=== PATIENT | female | born 1980 | race Caucasian/White ===

== ENCOUNTER 2018-12-17 08:37 | Emergency (ER) | payer OTHER, SELFPAY ==
[2018-12-04 19:48] VITALS: BMI 20.5
[2018-12-17 08:38] VITALS: BP 149/97; PULSE 89; RESP 18; TEMP 36.6; O2SAT 100; BMI 19.9
--- NOTE | 2018-12-17 08:58 | ED.VISSUMM ---
- ER Visit Summary Date of Service: 12/17/18 Chief Complaint: Left flank pain History of Present Illness: The patient is a 38 F presenting with left-sided flank pain. This started last night. States it suddenly worsened this morning. She has nausea with no vomiting. She has intermittent diarrhea and constipation. She has had subjective fever. She denies urinary complaints. Physical Examination: Vitals are stable. Patient is afebrile. Alert no acute distress. HEENT exam is unremarkable. Neck is supple. Lungs are clear and equal bilaterally. Heart is regular rate and rhythm. Abdomen is soft left lower quadrant tenderness with no rebound or guarding Back: Left CVA tenderness Extremities are unremarkable. Skin is warm and dry. Remainder of exam is unremarkable. Emergency Department Course and Treatment: Patient was given morphine, Zofran IV with improvement. CBC, chemistries unremarkable. Urinalysis shows 5-10 white blood cells, 5-10 red blood cells. HCG negative. CT abdomen pelvis without contrast shows 5.9 mm calculus at the left ureterovesical junction with mild degree of left hydronephrosis and hydroureter. On reevaluation, patient is resting comfortably. She is given prescription for [place] and Zofran. She is advised to follow-up with Dr. Bui. Advised return to ED for worsening complaints. Disposition: Discharge home Impression: Urolithiasis This note was generated with [employer] dictation software. It may contain incorrect words, spelling, and punctuation that were not noted in review of the chart prior to signing ED Disposition - Plan for ED Patient: Instructions: ED Stone Renal W Colic Prescriptions: Hydrocodone Bitart/Apap 5-325 [[place] 5MG-325MG] 1 tablet PO Q6H PRN PRN 3 Days #10 tablet PRN Reason: Pain Ondansetron [Zofran Odt] 4 mg PO Q8H PRN PRN #10 tablet PRN Reason: Nausea Referrals: Pilar Larose MD [Primary Care Provider] - Seymour Bui MD [STAFF PHYSICIAN] -
[2018-12-17] MEDS: Ondansetron 4 MG/2 ML Vial IV (09:34)
[2018-12-17] MEDS: Morphine 4 MG/ML Syringe IV (09:35)
[2018-12-17 09:42] LABS: Bacteria 0 SEEN /hpf (None Seen); Mucous, Urine 0 SEEN /hpf (<or=2+); Squamous Epithelial Cells - UA 0 SEEN /hpf (5-10)
[2018-12-17 09:46] LABS: Absolute Lymphocyte Count 1.31 X10^3/ul (0.83-4.51); Absolute Neutrophil Count 7.7 X10^3/uL (2.0-7.7); Basophil# 0.05 X10^3/uL; Basophil% 0.5 % (0-1); Color, Urine Yellow (Yellow); Eosinophil# 0.04 X10^3/uL; Eosinophils% 0.4 % (0-5); Glucose, Dipstick Normal (Normal); Hematocrit 42.2 % (37-47); Hemoglobin 14.6 g/dl (12.0-15.0); Ketone-Dipstick Negative (Negative); Leukocyte Esterase-Dipstick 25 /ul (Negative); Lymphocyte # 1.31 X10^3/ul (4.0); Lymphocyte % 13.4 % (19-41); Mean Corp Hgb Conc 34.6 g/gl (32-36); Mean Corpuscular Hgb 29.4 pg (27.0-32.0); Mean Corpuscular Volume 85.1 fL (81-99); Mean Platelet Vol. 9.1 fl (6.2-12.0); Monocyte# 0.67 X10^3/uL; Monocyte% 6.9 % (0-10); Neutrophil # 7.65 X10^3/uL (2.7-7.7); Neutrophil % 78.6 % (47-70); Nitrite-Dipstick Negative (Negative); Occult Blood-Urine 150 /ul (Negative); Platelet Count 252 K/mm3 (150-450); Protein-Dipstick Negative (Negative); RBC Distribution Width CV 12.5 % (11.6-14.6); RBC Distribution Width SD 37.9 fl (35.1-43.9); Red Blood Count 4.96 M/mm3 (4.2-5.4); Specific Gravity, Urine 1.015 (1.002-1.030); Urine Bilirubin Dipstick Negative (Negative); Urine Clarity Clear (Clear); Urine Urobilinogen Normal (Normal); White Blood Count 9.7 K/mm3 (4.4-11.0)
[2018-12-17 09:47] LABS: POSITIVE COUNT NO; POSITIVE DIFFERENTIAL NO; POSITIVE MORPHOLOGY NO
[2018-12-17 09:57] LABS: Anion Gap 5 (5-15); BUN 7 mg/dL (7-18); Calcium,Total 8.7 mg/dL (8.5-10.1); Chloride 106 mmol/L (98-107); EST Glomerular Filtration Rate 99 mL/min (>60); Est Glom Filt Rate - Afr Amer 120 mL/min (>60); Estimated Creatinine Clearance 104.31 ml/min; Glucose 88 mg/dL (74-106); Potassium 3.9 mmol/L (3.5-5.1); Sodium Level 139 mmol/L (136-145)
[2018-12-17 10:01] LABS: Red Blood Cells-Urine 5-10 SEEN /hpf (0-5); White Blood Cells 5-10 SEEN /hpf (0-5)
[2018-12-17 10:02] LABS: Pregnancy, Serum, hCG Quali. NEGATIVE Negative (0-9 Nonpreg)
--- NOTE | 2018-12-17 10:21 | CT_ITS ---
STUDY: CT ABDOMEN AND PELVIS WITHOUT CONTRAST REASON FOR EXAM: Female, 38 years old. Left flank pain. RADIATION DOSAGE (If Supplied By Facility): CTDIvol = ( 7.76 ) mGy, DLP = ( 334.26 ) mGycm TECHNIQUE: Transaxial images were obtained from the dome of the diaphragm to the symphysis pubis without oral contrast, and without intravenous contrast. Sagittal and coronal images were reconstructed. Individualized dose optimization techniques were used for this CT. COMPARISON: None. FINDINGS: The visualized lung bases are unremarkable. The visualized portions of the heart are within normal limits. Normal liver. Normal gallbladder and extrahepatic biliary system. Normal spleen. Normal pancreas. Normal bilateral adrenal glands. There is a 3 mm nonobstructive calculus in the mid lower pole calyx of the right kidney. Mild left hydronephrosis and hydroureter. There is a 5.9 mm calculus at the left ureterovesical junction. There is a small hiatal hernia. Normal small intestine. Normal colon. The appendix is visualized and appears normal. Normal abdominal aorta. Normal inferior vena cava. Normal retroperitoneum. Normal urinary bladder. An IUD device is seen within a retroverted uterus. There is evidence by 2.6 cm cyst in the right ovary. There is a small umbilical hernia containing fat. There is loss of the normal lumbar lordosis. CT/Abdomen/Pelvis without Cont IMPRESSION: 3 mm nonobstructive calculus in the lower pole calyx of the right kidney. 5.9 mm calculus at the left ureterovesical junction with mild degree of left hydronephrosis and hydroureter. Electronically Signed: Dhruv Ríos, at 11:26 EST , Service support ,
[2018-12-17 11:35] VITALS: BP 138/86; PULSE 70; RESP 16; O2SAT 100
--- NOTE | 2018-12-17 11:46 | DCINST.ED_ITS ---
ED Disposition - Plan for ED Patient: Instructions: ED Stone Renal W Colic Prescriptions: Hydrocodone Bitart/Apap 5-325 [[place] 5MG-325MG] 1 tablet PO Q6H PRN PRN 3 Days #10 tablet PRN Reason: Pain Ondansetron [Zofran Odt] 4 mg PO Q8H PRN PRN #10 tablet PRN Reason: Nausea Referrals: Pilar Larose MD [Primary Care Provider] - Seymour Bui MD [STAFF PHYSICIAN] -
[2018-12-17 11:57] VITALS: BP 141/76; PULSE 72; RESP 16; O2SAT 98
--- NOTE | 2018-12-17 11:58 | ED.RN ---
IV DC'ED, CATHETER INTACT, SMALL GAUZE DRESSING PLACED. DISCHARGE INSTRUCTIONS GIVEN TO AND REVIEWED WITH PATIENT, PATIENT DENIES QUESTIONS OR CONCERNS AND VOICES UNDERSTANDING OF DISCHARGE INSTRUCTIONS. PT AMBULATES OUT OF ROOM WITHOUT DIFFICULTY.
== END 2018-12-17 11:59 | disposition home or self-care (01) ==
LOC: ED 09:07
PROVIDERS: Emergency Provider Emergency Medicine; Family Provider Internal Medicine; PCP Internal Medicine
DX: N13.2 Hydronephrosis with renal and ureteral calculous obstruction (principal)
CPT/HCPCS: 74176; 80048; 81001; 84703; 85025; 96374; 96375; 99282; A4216; J2405

== ENCOUNTER → 2019-01-29 | Outpatient (CLI) | payer OTHER, SELFPAY ==
[2019-01-29 18:30] VITALS: BMI 20.7
== END | disposition home or self-care (01) ==
PROVIDERS: Family Provider Internal Medicine; PCP Internal Medicine; Referring Provider Nurse Practitioner; Visit Provider Nurse Practitioner
DX: E03.9 Hypothyroidism, unspecified (principal)
CPT/HCPCS: 84443

== ENCOUNTER → 2019-03-04 15:27 | Outpatient (CLI) | payer OTHER, SELFPAY ==
[2019-01-29 18:30] VITALS: BMI 20.7
--- NOTE | 2019-03-04 15:30 | RAD_ITS ---
STUDY: X-RAY - ABDOMEN/PELVIS REASON FOR EXAM: Female, 38 years old. Kidney stone follow-up. Recent stone removal. TECHNIQUE: 2 AP images of the abdomen were obtained. COMPARISON: CT dated December 17, 2018. FINDINGS: Normal visualized lung bases. There is an unremarkable bowel gas pattern. There is no demonstrated free abdominal air. No calcifications are visualized within the expected region of the kidneys, ureters or urinary bladder. There is intrauterine device in place in a grossly satisfactory position. Normal soft tissue structures. Normal visualized osseous structures. RAD/Abdomen Single View IMPRESSION: Nonspecific bowel gas pattern. No radiopaque calculi identified. Electronically Signed: Amrita Hoffman MD at 16:03 EDT Tel , Service support ,
== END ==
PROVIDERS: Family Provider Internal Medicine; PCP Internal Medicine; Referring Provider Urology; Visit Provider Urology
DX: N20.0 Calculus of kidney (principal)
CPT/HCPCS: 74018

== ENCOUNTER 2019-03-28 05:59 | Day surgery (SDC) | payer OTHER, SELFPAY ==
[2019-01-29 18:30] VITALS: BMI 20.7
--- NOTE | 2019-03-24 02:36 | HP_ITS ---
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 Is patient in pain?: No Allergies acetaminophen [From [facility] with Codeine] Allergy (Mild, Verified 03/24/19 09:47) Other codeine [From [facility] with Codeine] Allergy (Mild, Verified 03/24/19 09:47) Other Medications multivitamin,kv-rkfk-cfkmhpwu tablet 1 tab PO QDAY 02/05/18 [History Confirmed 03/24/19] levonorgestrel 20 mcg/24 hours (5 yrs) 52 mg intrauterine device 1 insert INTRAUTERINE ONCE 08/19/18 [History Confirmed 03/24/19] clobetasol 0.05 % topical ointment 1 applic TOPICAL QHS #30 g 01/27/19 [Rx Confirmed 03/24/19] PFSH Medical History Lichen sclerosus (Acute) Anxiety and depression (Acute) Atopic eczema (Acute) Surgical History Hx of LASIK (Acute) Family History Grandmother Heart disease Cancer Grandfather Cancer Heart disease Social History Smoking Status: Never smoker alcohol intake: never substance use type: does not use caffeine: Yes what type of physical activity do you participate in: walking seatbelt use: always additional social history: [employer] Patient works for [employer] Female Reproductive History Menstrual control method: progestin IUCD HPI HPI HPI: DANA HAWKINS, is a 38 F who presents to the office today for HPI HPI Surgical H&P: Yes HPI: DANA HAWKINS, is a 38 F who presents to the office today for an update history and physical. Patient notes she had a kidney stone removed in November. She denies recent changes in bowel habits. She denies nausea, vomiting. She denies an increase in abdominal pain. Patient's previous history per Dr. Anderson: DANA HAWKINS, is a 38 F who presents to the office today for general surgical consultation regarding umbilical hernia. The patient is referred by Dr. Izzy Choi written copy of my surgical consult recommendations will be returned to her. The patient states that 7 years ago she delivered twins. She did noted the umbilical hernia at that time. She thinks that it is progressively somewhat enlarged. She is not able to reduce the area. 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 She has not had any additional surgery on her abdomen. She has not been a tobacco user. She otherwise enjoys good health. She was evaluated by Dr. Izzy Choi for possible laparoscopic bilateral salpingectomy for sterilization. Consideration for combined umbilical hernia repair at that time was a consideration. The patient presents for consultation. ROS General General: No weight change, appetite, fatigue, colon cancer, breast cancer or weakness HEENT HEENT: Yes eye surgery; no difficulty swallowing, eye injury, swollen glands or hoarseness Endo Endocrine: No thyroid disease, diabetes mellitus, thyroid cancer, Hair loss, heat intolerance or cold intolerance Skin Skin: No rash or changing moles Musc Musculoskeletal: No back problems, arthritis, rheumatoid arthritis, gout or joint pain Cardio Cardiovascular: No murmur, pacemaker, heart disease, atrial fibrillation, high blood pressure, heart attack, heart stent, palpitations, shortness of breat with exertion or chest pain Psych Psychiatric: No depression, anxiety or hearing voices Resp Respiratory: No shortness of breath, No sleep apnea, No cough, No COPD, No asthma, No emphysema, No wheezing Gastro Gastrointestinal: Yes abdominal pain, No nausea or vomiting, No diarrhea, Yes constipation, No blood in stool, No acid reflux, No hemorrhoids, No ulcers, No gallbladder problem, No black,tarry stools Chance Hematologic: No blood thinners, No blood disorders, No bleeding, No anemia, No blood clots Neuro Neurologic: No weakness Exam Const General: cooperative, healthy appearing, comfortable, no acute distress [facility] Head: normal to inspection Eyes General: appearance normal, both eyes and all related structures Neck Neck: normal visual inspection Neck mass: No Resp Effort & Inspection: normal respiratory effort Auscultation: clear to auscultation bilaterally Cardio Rate: regular rate Rhythm: regular rhythm Heart Sounds: no murmurs GI Inspection: normal to inspection Palpation: soft, hernia (umbilical) Auscultation: normal bowel sounds Skin General: no rashes or lesions noted Neuro General: no focal motor deficits, CN's II-XI intact bilaterally Extrem General: normal to inspection Psych Appearance: grossly normal Affect: normal affect Assessment & Plan Problems 1. Umbilical hernia without obstruction and without gangrene K42.9 recommend surgery consult, discussed laparoscopic bilateral salpingectomy for sterilization at same time if desired Plan Dr. Anderson will plan to perform an umbilical hernia repair with possible mesh. Procedure details, risks and benefits have been reviewed with the patient. Patient has had the opportunity to ask and have questions answered. Patient verbally understands and agrees with the plan. Coding Level of Care Code No Charge Diagnoses Umbilical hernia without obstruction and without gangrene K42.9 ??Obstruction and gangrene presence: without obstruction or gangrene Comment Update H&P 03/24/19 [id number] <Electronically signed by Leena Hong PA-C> Date Leena Hong PA-C I have re-examined the patient. There are no clinical changes since date of exam.
[2019-03-24 09:47] VITALS: BMI 20.2
[2019-03-28 06:24] LABS: Internal QC Validated? YES +Cl - CLEAR BKGD; Pregnancy, Urine Negative Negative
[2019-03-28 06:25] VITALS: BP 140/89; PULSE 67; RESP 16; TEMP 37.2; O2SAT 100; BMI 20.2
[2019-03-28] MEDS: Cefazolin 2 GM in 0.9% Normal Saline 100 ML IV (07:19)
--- NOTE | 2019-03-28 07:30 | HERN_PTH ---
PATIENT: DANA HAWKINS MARCH LOC: [facility] [place] U#:[id number] AGE/SX: 38/F ROOM: RE03/28/[address]: Dr. Zander Anderson MD : 1980 BED: DIS: 03/28/2019 SPEC #: [id number] RECD: 03/28/19 10:02 STATUS: CLEMENT TEO #: [id number] VINAY: 03/28/19 07:[address]: Zander Anderson DEPT: SURGICAL PATHOLOGY RECD BY: Haja Osman ENTERED: 03/28/19 14:38 SP TYPE: Hernia OTHR DR: Dr. Pilar Larose MD Tissues: HERNIA Procedures: Surgery Specimen Level II HEADER OPERATION: Umbilical hernia repair with mesh PRE-OP DIAGNOSIS: Umbilical hernia TISSUE SUBMITTED: Hernia sac MICROSCOPIC DIAGNOSIS Umbilical hernia, herniorrhaphy: Hernia sac with minimal fibrosis and benign lymphoid tissue. AM:clau 03/31/19 MICROSCOPIC DESCRIPTION Slides are reviewed. GROSS DESCRIPTION Received in fixative is one container labeled with the patient's name and designated hernia sac. The specimen consists of a piece of yellow adipose tissue measuring 3 x 2 x 1.5 cm. Sections do not reveal any mass lesion. Cvicu Rn sections are submitted in one cassette. / SJ:clau 03/28/19 TC:5 CPT: 25174
--- NOTE | 2019-03-28 07:31 | DCINST_ITS ---
Discharge Diet: Light diet - advance as tolerated - if you have questions about your diet instructions, please talk to you doctor. Discharge Activity: May Not Drive - for 3-5 days or while taking narcotic pain medicine. May shower in (days): 1 Lifting Restrictions: 10 pounds Call your doctor if your incision/area has: Continuous Slow Oozing, Sudden Increased Bleeding, Increased Pain/ Swelling, Increased Redness, Foul Smelling Discharge Call your doctor if you observe: Fever of 101 or Higher Suture Line Care: Avoid Pulling/Pushing, Avoid Pinching/Bending Additional Dressing/Incision Instructions:: Change or remove dressing in 4 days. Leave steri-strips in place for 1 week. Allergies/Adverse Reactions: Allergies codeine [From [facility] with Codeine] Adverse Reaction (Mild, Verified 03/28/19 06:24) NAUSEA, VOMITING Medications to take at Discharge multivitamin,bt-ialh-ncoxghrs tablet 1 tab PO QDAY 02/05/18 levonorgestrel 20 mcg/24 hours (5 yrs) 52 mg intrauterine device 1 insert INTRAUTERINE ONCE 08/19/18 clobetasol 0.05 % topical ointment 1 applic TOPICAL QHS #30 g 01/27/19 traMADol [Ultram] 50 mg PO Q6H PRN PRN #6 tablet 03/28/19 The following prescriptions were given: traMADol [Ultram] 50 mg PO Q6H PRN PRN #6 tablet PRN Reason: Pain Primary Care Physician: Pilar Larose MD [Primary Care Provider] - Test Results: Test results from this visit will be discussed in further detail at your follow- up appointment, if applicable. Please Follow Up With: Zander Anderson MD - [phone] When: Call to make an appointment to be seen in about 10 days.
[2019-03-28] MEDS: Bupivacaine Mpf 0.5% 30 ML VIAL (08:02)
--- NOTE | 2019-03-28 08:04 | PCM.OPRPT ---
Problem List (1) Umbilical hernia Status: Acute Qualifiers: Obstruction and gangrene presence: without obstruction or gangrene Comment: recommend surgery consult, discussed laparoscopic bilateral salpingectomy for sterilization at same time if desired Report of Operation Date of Procedure: 03/28/19 Pre-Operative Diagnosis: Enlarging umbilical hernia Post-Operative Diagnosis: Same Surgery/Procedure Performed:: Umbilical herniorrhaphy with 6.4 cm ventralex mesh. Reference #[id number]. Lot number [id number]. Expiry date 12/19/2020 Description of Surgical Findings:: Timeout and informed consent was obtained. 38-year-old female taken out from placement table underwent general anesthesia. Ancef 2 g given intravenous preoperatively. The abdomen sterilely prepped draped. Curvilinear incision made in the infra portion umbilicus. Sharp and blunt dissection was used to identify the pedicle hernia sac and contents which were transected with electrocautery. Defect measured approximately ventral X mesh was gently moistened and placed within the defect smooth out and then the tails were secured with interrupted 0 Nurolon. The fascia was closed transversely with the same simple sutures of 0 Nurolon. Skin edges proximal interrupted 4 Monocryl subdermal stitches. Surgical glue was applied followed by cottonball Telfa OpSite. Sponge and instrument and needle counts were reported the surgeon be correct. Blood loss was minimal. A total of 20 cc of 0.5% Marcaine as a local anesthetic was used. Specimens hernia sac contents. Drains none. Blood loss minimal. Zander Anderson M.D., F.A.C.S. Type of Anesthesia:: General Anesthesiologist: Regan Worthington
--- NOTE | 2019-03-28 08:07 | OP.PCM_ITS ---
Problem List (1) Umbilical hernia Status: Acute Qualifiers: Obstruction and gangrene presence: without obstruction or gangrene Comment: recommend surgery consult, discussed laparoscopic bilateral salpingectomy for sterilization at same time if desired Report of Operation Date of Procedure: 03/28/19 Pre-Operative Diagnosis: Enlarging umbilical hernia Post-Operative Diagnosis: Same Surgery/Procedure Performed:: Umbilical herniorrhaphy with 6.4 cm ventralex mesh. Reference #[id number]. Lot number [id number]. Expiry date 12/19/2020 Description of Surgical Findings:: Timeout and informed consent was obtained. 38-year-old female taken out from placement table underwent general anesthesia. Ancef 2 g given intravenous preoperatively. The abdomen sterilely prepped draped. Curvilinear incision made in the infra portion umbilicus. Sharp and blunt dissection was used to identify the pedicle hernia sac and contents which were transected with electrocautery. Defect measured approximately ventral X mesh was gently moistened and placed within the defect smooth out and then the tails were secured with interrupted 0 Nurolon. The fascia was closed transversely with the same simple sutures of 0 Nurolon. Skin edges proximal interrupted 4 Monocryl subdermal stitches. Surgical glue was applied followed by cottonball Telfa OpSite. Sponge and instrument and needle counts were reported the surgeon be correct. Blood loss was minimal. A total of 20 cc of 0.5% Marcaine as a local anesthetic was used. Specimens hernia sac contents. Drains none. Blood loss minimal. Zander Anderson M.D., F.A.C.S. Type of Anesthesia:: General Anesthesiologist: Regan Worthington
[2019-03-28 08:20] VITALS: BP 135/85; BP 140/89; PULSE 57; RESP 18; TEMP 36.4; O2SAT 99
[2019-03-28 08:31] VITALS: BP 121/91; BP 140/89; PULSE 56; RESP 18; O2SAT 100
[2019-03-28 08:45] VITALS: BP 123/78; BP 140/89; PULSE 58; RESP 18; O2SAT 100
[2019-03-28 09:00] VITALS: BP 124/81; BP 140/89; PULSE 59; RESP 18; O2SAT 100
[2019-03-28] MEDS: HYDROcodone Bitartrate/Apap 5/325 Tablet PO (09:29)
[2019-03-28 11:11] VITALS: BP 129/84; BP 140/89; PULSE 66; RESP 18; TEMP 36.6; O2SAT 100
== END 2019-03-28 11:16 | disposition home or self-care (01) ==
LOC: SDC 06:00 → AC 06:01
PROVIDERS: Anesthesiology; Family Provider Internal Medicine; PCP Internal Medicine; Referring Provider Surgery; Visit Provider Surgery
PROC: (CPT 49585; principal; 2019-03-28 07:15)
DX: K42.9 Umbilical hernia without obstruction or gangrene (principal); L20.9 Atopic dermatitis, unspecified; Z87.442 Personal history of urinary calculi
CPT/HCPCS: 49585; 81025; 88302; C1781; J7120; J2405

== ENCOUNTER → 2019-06-03 13:49 | Outpatient (CLI) | payer OTHER, SELFPAY ==
[2019-06-02 15:16] VITALS: BMI 20.3
--- NOTE | 2019-06-03 13:52 | BI_ITS ---
MAMMOGRAPHY - BILATERAL DIAGNOSTIC REASON FOR EXAM: Female, 38 years old. History of a tender left breast lump. PERTINENT HISTORY: Non-contributory. TECHNIQUE: Digital bilateral breast tierra (3D mammographic acquisition) in the CC and MLO projections. 2-D mediolateral oblique (MLO) and craniocaudad (CC) views of both breasts were obtained. CAD: Full Field Digital Mammography with Computer Added Detection was performed. COMPARISON: Comparison is made with prior abdomen examination dated September 12, 2017. FINDINGS: Breast Composition: The breasts are extremely dense, which lowers the sensitivity of mammography. There are no dominant masses or suspicious calcifications. No other significant abnormalities are identified. There has been no significant change since the prior study. BI/DIAG MAMM W/CAD, BILAT IMPRESSION: Stable bilateral diagnostic mammogram. With the patient's history of a palpable lump in the left breast, correlation with ultrasound is recommended. ASSESSMENT CATEGORY: BIRADS Category 0: Incomplete. Need additional imaging evaluation. A letter regarding these results will be sent to the patient by the facility within 30 days. Approximately 10% of breast cancers are not detected by mammography. A normal mammogram should not delay biopsy of a clinically suspicious abnormality. Electronically Signed: Dhruv Ríos, at 15:31 EDT , Service support ,
--- NOTE | 2019-06-03 13:52 | US_ITS ---
STUDY: ULTRASOUND BREAST - LEFT REASON FOR EXAM: Female, 38 years old. Palpable lump left breast. TECHNIQUE: Axial and longitudinal images of the LEFT breast were performed with a high resolution ultrasound transducer. COMPARISON: None. FINDINGS: LEFT Breast: The palpable abnormality corresponds to a 1.5 cm x 1.2 cm x 0.9 cm predominantly cystic structure with a septation and slightly thickened wall. This may represent a complex cyst. A follow-up sonogram in 3 months is recommended. US/Breast Limited Unilateral IMPRESSION: The palpable abnormality corresponds to a 1.5 cm x 1.2 cm x 0.9 cm complex cyst at the 12:00 position of the breast at 3 cm from nipple. This may represent a hemorrhagic cyst A 3 month follow-up sonogram is recommended. ASSESSMENT CATEGORY: BIRADS Category 3: Probably Benign - Short-Interval Follow-up Suggested. A letter regarding these results will be sent to the patient by the facility within 30 days. Electronically Signed: Dhruv Ríos, at 15:31 EDT , Service support ,
== END ==
PROVIDERS: Family Provider Internal Medicine; PCP Internal Medicine; Referring Provider Nurse Practitioner Women's Health; Visit Provider Nurse Practitioner Women's Health
DX: N63.20 Unspecified lump in the left breast, unspecified quadrant (principal)
CPT/HCPCS: 76642; 77062; 77066; G0279

== ENCOUNTER → 2019-12-10 08:36 | Outpatient (CLI) | payer OTHER, SELFPAY ==
[2019-12-10 09:30] LABS: Cholesterol 193 mg/dL (200); Glucose 82 mg/dL (74-106); High Density Lipoprotein 58 mg/dL; Triglycerides 73 mg/dL; Very Low Density Lipoprotein 15 mg/dL (5-40)
== END ==
PROVIDERS: PCP Internal Medicine; Referring Provider Obstetrics & Gynecology; Visit Provider Obstetrics & Gynecology
DX: Z13.1 Encounter for screening for diabetes mellitus (principal); Z13.21 Encounter for screening for nutritional disorder; Z13.220 Encounter for screening for lipoid disorders
CPT/HCPCS: 36415; 80061; 82306; 82947

== ENCOUNTER → 2020-11-29 22:05 | Outpatient (CLI) | payer OTHER, SELFPAY ==
[2020-11-29 19:55] VITALS: BMI 21.1
[2020-11-29 22:38] LABS: ALB/GLOB Ratio 1.2 RATIO (0.9-2.4); AST(SGOT) 16 U/L (15-37); Alanine Aminotransfer ALT/SGPT 21 U/L (13-56); Albumin, Serum 4.2 g/dL (3.2-5.0); Alkaline Phosphatase 58 U/L (45-117); Amylase 77 U/L (25-115); Anion Gap 4 (5-15); BUN 18 mg/dL (7-18); BUN/Creat Ratio 20.8 RATIO (10-20); Calcium,Total 9.1 mg/dL (8.5-10.1); Chloride 105 mmol/L (98-107); Creatinine, Serum 0.87 mg/dL (0.55-1.02); EST Glomerular Filtration Rate 77 mL/min (>60); Est Glom Filt Rate - Afr Amer 93 mL/min (>60); Globulin 3.6 g/dL (2.2-4.2); Glucose 69 mg/dL (74-106); Potassium 3.9 mmol/L (3.5-5.1); Protein, Total 7.8 g/dL (6.4-8.2); Sodium Level 138 mmol/L (136-145)
[2020-11-29 22:39] LABS: Absolute Lymphocyte Count 2.03 X10^3/uL (0.83-4.51); Absolute Neutrophil Count 3.4 X10^3/uL (2.0-7.7); Basophil# 0.08 X10^3/uL; Basophil% 1.3 % (0-1); Eosinophil# 0.15 X10^3/uL; Eosinophils% 2.4 % (0-5); Hematocrit 40.7 % (37-47); Hemoglobin 13.9 g/dL (12.0-15.0); Lymphocyte # 2.03 X10^3/ul (4.0); Lymphocyte % 32.2 % (19-41); Mean Corp Hgb Conc 34.2 g/dL (32-36); Mean Corpuscular Hgb 28.6 pg (27.0-32.0); Mean Corpuscular Volume 83.7 fL (81-99); Mean Platelet Vol. 10.1 fl (6.2-12.0); Monocyte# 0.66 X10^3/uL; Monocyte% 10.5 % (0-10); NRBC Flagged by Analyzer 0 % (0-5); Neutrophil # 3.37 X10^3/uL (2.7-7.7); Neutrophil % 53.4 % (47-70); Platelet Count 244 K/mm3 (150-450); RBC Distribution Width CV 11.9 % (11.6-14.6); Red Blood Count 4.86 M/mm3 (4.2-5.4); White Blood Count 6.3 K/mm3 (4.4-11.0)
== END ==
PROVIDERS: PCP Internal Medicine; Referring Provider Nurse Practitioner; Visit Provider Nurse Practitioner
DX: R10.11 Right upper quadrant pain (principal)
CPT/HCPCS: 80053; 82150; 85025

== ENCOUNTER → 2020-12-02 07:50 | Outpatient (CLI) | payer OTHER, SELFPAY ==
[2020-11-23 16:17] VITALS: BMI 21.2
[2020-11-29 19:55] VITALS: BMI 21.1
--- NOTE | 2020-12-02 07:52 | US_ITS ---
EXAM: US ABDOMEN LIMITED, RIGHT UPPER QUADRANT CLINICAL INDICATION: chronic ruq pain TECHNIQUE: Real-time ultrasound of the right upper quadrant with image documentation. This report was created using [employer] report generation technology. COMPARISON: None. FINDINGS: LIVER: Unremarkable. There is normal echotexture. No focal hepatic lesion. No intrahepatic biliary ductal dilation. GALLBLADDER: Unremarkable. No shadowing gallstone. No gallbladder wall thickening is demonstrated. No pericholecystic fluid. Negative sonographic Prajapati''s sign. COMMON BILE DUCT: Unremarkable as visualized. The proximal common bile duct is within normal limits for the patient''s age. PANCREAS: Unremarkable as visualized. No focal abnormality is demonstrated in the pancreas. No pancreatic ductal dilatation. RIGHT KIDNEY: Unremarkable. There is no hydronephrosis. No shadowing calculus. No focal lesion or perinephric collection is demonstrated. US/Gallbladder IMPRESSION: Normal right upper quadrant ultrasound. Electronically Signed: Wang Merritt MD ([place]) at 16:51 EST , Service support ,
--- NOTE | 2020-12-02 07:52 | BI_ITS ---
MAMMOGRAPHY - BILATERAL DIAGNOSTIC REASON FOR EXAM: Female, 40 years old. RT CLEAR NIPPLE DISCHARGE X 3-4 MONTHS NO PAIN PERTINENT HISTORY: NO FAM HX OF BREAST CA PT HAD FIRST CHILD AT AGE 28 PT HAS HAD IUD X 7 YRS LT U/S DONE 06/03/19 OF [facility]= PB LT U/S BX 06/13/19 @ [facility] TECHNIQUE: Digital bilateral breast tierra (3D mammographic acquisition) in the CC and MLO projections. 2-D mediolateral oblique (MLO) and craniocaudad (CC) views of both breasts were obtained. CAD: Full Field Digital Mammography with Computer Added Detection was performed. COMPARISON: None. FINDINGS: Breast Composition: The breasts are extremely dense, which lowers the sensitivity of mammography. There are no dominant masses or suspicious calcifications. No other significant abnormalities are identified. BI/DIAG MAMM W/CAD, BILAT IMPRESSION: Further ultrasonographic evaluation recommended, as described above. (I) ASSESSMENT CATEGORY: BIRADS Category 0: Incomplete. Need additional imaging evaluation. A letter regarding these results will be sent to the patient by the facility within 30 days. Approximately 10% of breast cancers are not detected by mammography. A normal mammogram should not delay biopsy of a clinically suspicious abnormality. Electronically Signed: Kermit Loredo MD at 1:39 EST Tel , Service support ,
--- NOTE | 2020-12-02 07:52 | US_ITS ---
STUDY: ULTRASOUND BREAST - RIGHT REASON FOR EXAM: Female, 40 years old. Nipple discharge in the right breast. TECHNIQUE: Axial and longitudinal images of the RIGHT breast were performed with a high resolution ultrasound transducer. # OF IMAGES: 13 COMPARISON: Comparison is made with prior mammogram done earlier in the day. FINDINGS: RIGHT Breast: The retroareolar region of the right breast was examined by ultrasound. No sonographic abnormality is seen. US/Breast Limited Unilateral IMPRESSION: No sonographic abnormality is seen. ASSESSMENT CATEGORY: BIRADS Category 1: Negative. A letter regarding these results will be sent to the patient by the facility within 30 days. Electronically Signed: Dhruv Ríos MD at 12:56 EST , Service support ,
== END ==
PROVIDERS: PCP Internal Medicine; Referring Provider Obstetrics & Gynecology; Visit Provider Obstetrics & Gynecology
DX: N64.3 Galactorrhea not associated with childbirth (principal); R10.11 Right upper quadrant pain
CPT/HCPCS: 76642; 76705; 77062; 77066; G0279

== ENCOUNTER → 2020-12-10 12:31 | Outpatient (CLI) | payer OTHER, SELFPAY ==
[2020-11-29 19:55] VITALS: BMI 21.1
--- NOTE | 2020-12-10 12:32 | NM_ITS ---
CLINICAL: 40-year-old female with history of abdominal pain and nausea. RADIONUCLIDE HEPATOBILIARY SCINTIGRAPHY COMPARISON: Abdominal ultrasound report 12/02/2020 FINDINGS: Following the intravenous administration of approximately 5.0 mCi of 99m Tc Mebrofenin, hepatobiliary images reveal: 1. Relatively prompt and homogeneous radiopharmaceutical concentration is noted by a normal sized liver. No parenchymal defects are identified. 2. Gallbladder activity is identified at 10 minutes post radiopharmaceutical administration. 3. Small intestinal tract is observed at 45 minutes following tracer injection. 4. Washout of the radiopharmaceutical by the hepatic parenchyma appears qualitatively normal. Cholecystokinin (0.02 ug/kg) was administered intravenously over a 30-minute period. The post CCK gallbladder ejection fraction calculated at 21 minutes following Cholecystokinin administration was noted to be 91.0 % (normal greater than 35%). During 30 minutes of post CCK imaging, there is no scintigraphic evidence of reflux of the radiotracer into the common hepatic duct or refilling of the gallbladder. KS/Hepatobilliary Img w/Pharm Int IMPRESSION: 1. NORMAL 99m Tc Mebrofenin hepatobiliary imaging examination with Cholecystokinin. A. A gallbladder ejection fraction calculated to be greater than 35% following the administration of Cholecystokinin makes the probability of functional hepatobiliary disease (gallbladder and/or sphincter of Oddi dyskinesia) and/or organic hepatobiliary disease (chronic acalculous cholecystitis and/or cystic duct syndrome) to be low. (Jacobo Billy et al, Journal of Nuclear Medicine 32:1695, 1991). Electronically Signed: Jaya Perkins DO at 8:34 EST Tel , Service support ,
== END ==
PROVIDERS: PCP Nurse Practitioner; Referring Provider Nurse Practitioner; Visit Provider Nurse Practitioner
DX: R10.11 Right upper quadrant pain (principal); R11.2 Nausea with vomiting, unspecified
CPT/HCPCS: 78227; A9537; J2805

== ENCOUNTER → 2021-03-17 09:49 | Outpatient (CLI) | payer OTHER, SELFPAY ==
[2020-11-29 19:55] VITALS: BMI 21.1
--- NOTE | 2021-03-17 09:52 | RAD_ITS ---
STUDY: X-RAY - ABDOMEN/PELVIS REASON FOR EXAM: Female, 40 years old. CALCULUS OF KIDNEY TECHNIQUE: Single AP view of the abdomen / pelvis. COMPARISON: 03/04/2019 FINDINGS: Normal visualized lung bases. There is an unremarkable bowel gas pattern. The visualized liver, spleen and kidneys are grossly normal in size and morphology. Intrauterine device in the pelvis. Normal visualized osseous structures. RAD/Abdomen Single View IMPRESSION: Normal x-ray examination of the abdomen and pelvis. No obvious renal or ureteral stone. Electronically Signed: Jaya Toledo MD at 7:41 EDT Tel , Service support ,
--- NOTE | 2021-03-17 11:01 | CT_ITS ---
STUDY: CT ABDOMEN AND PELVIS WITHOUT CONTRAST REASON FOR EXAM: Female, 40 years old. One-month history of right flank pain with microscopic hematuria. RADIATION DOSAGE (If Supplied By Facility): CTDIvol = ( 6.25 ) mGy, DLP = ( 281.22 ) mGycm TECHNIQUE: Transaxial images were obtained from the dome of the diaphragm to the symphysis pubis without oral contrast, and without intravenous contrast. Sagittal and coronal images were reconstructed. Individualized dose optimization techniques were used for this CT. COMPARISON: Comparison is made with prior study 12/17/2018. FINDINGS: The visualized lung bases are unremarkable. The visualized portions of the heart are within normal limits. Normal liver. Normal gallbladder and extrahepatic biliary system. Normal spleen. Normal pancreas. Normal bilateral adrenal glands. Stable small nonobstructive bilateral intrarenal calculi. No obstructive uropathy is seen. Normal visualized stomach. Normal small intestine. Normal colon. The appendix is visualized and appears normal. Normal abdominal aorta. Normal inferior vena cava. Normal retroperitoneum. Normal urinary bladder. IUD is seen within the retroverted uterus. There is a 2.7 cm x 3.3 cm cystic density in the left ovary. A similar appearing nodular densities in the right ovary measuring 2.6 cm x 2.2 cm. There is a small umbilical hernia containing fat. Normal osseous structures. CT/Abdomen/Pelvis without Cont IMPRESSION: 2.7 cm x 3.3 cm cystic density in the left ovary. 2.6 cm x 2.2 cm right ovarian cyst. Stable small nonobstructive bilateral intrarenal calculi. Electronically Signed: Dhruv Ríos MD at 12:05 EDT , Service support ,
[2021-03-17 16:17] LABS: Bacteria 0 SEEN /hpf (None Seen); Mucous, Urine 0 SEEN /hpf (<or=2+); Red Blood Cells-Urine 0 SEEN /hpf (0-5); White Blood Cells 0 SEEN /hpf (0-5)
[2021-03-17 16:55] LABS: Color, Urine Straw (Yellow); Glucose, Dipstick Normal (Normal); Ketone-Dipstick Negative (Negative); Leukocyte Esterase-Dipstick Negative /ul (Negative); Nitrite-Dipstick Negative (Negative); Occult Blood-Urine Negative /ul (Negative); Protein-Dipstick Negative (Negative); Specific Gravity, Urine 1.005 (1.002-1.030); Urine Bilirubin Dipstick Negative (Negative); Urine Clarity Clear (Clear); Urine Urobilinogen Normal (Normal)
[2021-03-17 17:07] LABS: Squamous Epithelial Cells - UA 0-5 SEEN /hpf (5-10)
== END ==
PROVIDERS: PCP Nurse Practitioner; Referring Provider Nurse Practitioner Adult Health; Visit Provider Nurse Practitioner Adult Health
DX: N20.0 Calculus of kidney (principal); R10.9 Unspecified abdominal pain; R31.29 Other microscopic hematuria
CPT/HCPCS: 74018; 74176; 81001

== ENCOUNTER → 2021-03-23 12:20 | Outpatient (CLI) | payer OTHER, SELFPAY ==
[2020-11-29 19:55] VITALS: BMI 21.1
--- NOTE | 2021-03-23 12:23 | US_ITS ---
STUDY: ULTRASOUND OF THE FEMALE PELVIS - COMPLETE REASON FOR EXAM: Female, 40 years old. Pelvic pain LMP: Unknown. TECHNIQUE: Transabdominal and Transvaginal TECHNICAL QUALITY: Adequate. COMPARISON: Comparison is made with prior CT scan of the abdomen and pelvis dated 03/17/2021. FINDINGS: The uterus is retroverted and is in a midline position. The uterus measures 10.3 cm x 6.3 cm x 4.8 cm. Normal uterine cervix. The endometrium measures 1.2 mm in thickness, and is hyperechoic. There is no demonstrated endometrial mass. There is no demonstrated myometrial mass. I.U.D. - The patient does have an I.U.D. The right ovary is visualized. The right ovary measures 3.6 cm x 2.8 cm x 2.1 cm. There is a 2.2 cm x 2.1 cm x 2 cm cyst in the right ovary. There is no visualized right adnexal mass or complex lesion. There is normal arterial and normal venous vascularity. The left ovary is visualized. The left ovary measures 4.7 cm x 3 cm x 2.9 cm. There is a 3.2 cm x 2.3 cm x 2.6 cm left ovarian cyst. There is no visualized left adnexal mass or complex lesion. There is normal arterial and normal venous vascularity. There is no fluid in the cul-de-sac. The pre void volume of the bladder was 286. ml. Polycystic ovary disease: No. US/Pelvic (Non ) IMPRESSION: IUD is seen within the endometrium. Bilateral ovarian cysts. Electronically Signed: Dhruv Ríos MD at 15:53 EDT , Service support ,
--- NOTE | 2021-03-23 12:23 | US_ITS ---
STUDY: ULTRASOUND OF THE FEMALE PELVIS - COMPLETE REASON FOR EXAM: Female, 40 years old. Pelvic pain LMP: Unknown. TECHNIQUE: Transabdominal and Transvaginal TECHNICAL QUALITY: Adequate. COMPARISON: Comparison is made with prior CT scan of the abdomen and pelvis dated 03/17/2021. FINDINGS: The uterus is retroverted and is in a midline position. The uterus measures 10.3 cm x 6.3 cm x 4.8 cm. Normal uterine cervix. The endometrium measures 1.2 mm in thickness, and is hyperechoic. There is no demonstrated endometrial mass. There is no demonstrated myometrial mass. I.U.D. - The patient does have an I.U.D. The right ovary is visualized. The right ovary measures 3.6 cm x 2.8 cm x 2.1 cm. There is a 2.2 cm x 2.1 cm x 2 cm cyst in the right ovary. There is no visualized right adnexal mass or complex lesion. There is normal arterial and normal venous vascularity. The left ovary is visualized. The left ovary measures 4.7 cm x 3 cm x 2.9 cm. There is a 3.2 cm x 2.3 cm x 2.6 cm left ovarian cyst. There is no visualized left adnexal mass or complex lesion. There is normal arterial and normal venous vascularity. There is no fluid in the cul-de-sac. The pre void volume of the bladder was 286. ml. Polycystic ovary disease: No. US/Transvaginal Non- IMPRESSION: IUD is seen within the endometrium. Bilateral ovarian cysts. Electronically Signed: Dhruv Ríos MD at 15:53 EDT , Service support ,
== END ==
PROVIDERS: PCP Nurse Practitioner; Referring Provider Obstetrics & Gynecology; Visit Provider Obstetrics & Gynecology
DX: R10.2 Pelvic and perineal pain (principal)
CPT/HCPCS: 76830; 76856; 93976

== ENCOUNTER 2021-06-07 05:55 | Day surgery (SDC) | payer OTHER, SELFPAY ==
[2021-03-29 12:01] VITALS: BMI 21.1
[2021-05-09 10:43] VITALS: BMI 21.1
[2021-06-06 10:27] LABS: Absolute Lymphocyte Count 1.31 X10^3/uL (0.83-4.51); Absolute Neutrophil Count 4.6 X10^3/uL (2.0-7.7); Basophil# 0.07 X10^3/uL; Basophil% 1.1 % (0-1); Eosinophils% 1.5 % (0-5); Hematocrit 41.2 % (37-47); Hemoglobin 14.1 g/dL (12.0-15.0); Lymphocyte # 1.31 X10^3/ul (0.83-4.51); Lymphocyte % 19.8 % (19-41); Mean Corp Hgb Conc 34.2 g/dL (32-36); Mean Corpuscular Hgb 29.4 pg (27.0-32.0); Mean Corpuscular Volume 85.8 fL (81-99); Mean Platelet Vol. 9.8 fl (6.2-12.0); Monocyte% 7.6 % (0-10); NRBC Flagged by Analyzer 0 % (0-5); Neutrophil # 4.62 X10^3/uL (2.7-7.7); Neutrophil % 69.8 % (47-70); Platelet Count 244 K/mm3 (150-450); RBC Distribution Width CV 12.4 % (11.6-14.6); RBC Distribution Width SD 38.8 fl (35.1-43.9); White Blood Count 6.6 K/mm3 (4.4-11.0)
[2021-06-07] VITALS (7 sets, daily range): BP systolic 114–146; BP diastolic 72–91; PULSE 61–75; RESP 16–18; TEMP 36.4–36.9; O2SAT 100; BMI 20.2
--- NOTE | 2021-06-07 | FALS_PTH ---
PATIENT: DANA HAWKINS MARCH LOC: [facility] [place] U[place][id number] AGE/SX: 40/F ROOM: RE06/07/[address]: Dr. Izzy Choi MD : 1980 BED: DIS: 06/07/2021 SPEC #: [id number] RECD: 06/07/21 12:15 STATUS: CLEMENT RENunu #: [id number] VINAY: 06/07/21 00:[address]: Izzy Choi DEPT: SURGICAL PATHOLOGY RECD BY: Bj Kat ENTERED: 06/07/21 12:15 SP TYPE: FALL TUBES OTHR DR: Itzel Ashley, SD-Roseanne Tissues: Fallopian tube Procedures: Surgery Specimen Level IV HEADER OPERATION: Laparoscopic bilateral salpingectomy, right oophorectomy PRE-OP DIAGNOSIS: Chronic pelvic pain, right flank pain TISSUE SUBMITTED: Bilateral fallopian tubes, right ovary MICROSCOPIC DIAGNOSIS Bilateral fallopian tubes and right ovary, salpingectomies and oophorectomy: Right fallopian tube - complete segment of fallopian tube with no pathologic change. Left fallopian tube - complete segment of fallopian tube with no pathologic change. Right ovary ? corpora albicantia with benign cystic change. AM:clau 06/08/2021 COMMENT Case has been reviewed in consultation with Dr. Gay who concurs with the above diagnosis. IDC:RANDA MICROSCOPIC DESCRIPTION Slides are reviewed. GROSS DESCRIPTION Received in fixative is one container labeled with the patient's name and designated bilateral fallopian tubes and right ovary. The specimen consists of a fallopian tube and adjacent ovary identified as right and one separate fallopian tube, left fallopian tube. The left fallopian tube measures 4.5 cm in length and 0.5 cm in diameter. The fimbrial end is identified. Sections reveal unremarkable cut surfaces. The right fallopian tube measures 4.5 cm in length and 0.5 cm in diameter. The fimbrial end is identified. No tuboovarian adhesions are noted. Sections reveal unremarkable cut surfaces. The soft to cystic right ovary measures 3 x 2 x 1.5 cm. The outer surface is unremarkable. Sections reveal multiple cysts filled with clear to slightly hemorrhagic fluid. The largest cyst measures 1 cm in greatest dimension. Stud Sheep Farmer sections are submitted in five cassettes as follows: 1 - left fallopian tube, 2 - right fallopian tube, 3-5 ? right ovary, entirely submitted. / RANDA:clau 06/07/21 TC:5 CPT: 05701 x3
[2021-06-07 06:27] LABS: Internal QC Validated? YES +Cl - CLEAR BKGD; Pregnancy, Urine Negative Negative
[2021-06-07] MEDS: Lactated Ringers 1,000 ML 100 ML IV ×2 (06:37→09:18)
--- NOTE | 2021-06-07 07:26 | HP.PCM_ITS ---
History and Physical Date of Admission: 06/07/21 [facility] [id number] [place] [address] [id number] OFFICE VISITDate of Service: 05/09/21 MR#:[id number]:[id number]: DANA HAWKINS JUNERep #:[id number] Provider:Dr. Izzy Choi, WILLISge/Sex: 40/F [facility] Int[facility] Vital Signs 05/09/21 10:42 05/09/21 10:43 Height 5 ft 9 in Weight: 137 lb BMI 20.2 21.1 BP 150/104 H Intake Visit Reasons: LRSO Chief Complaint: LRSO Vasc Tech Required: No Is patient in pain?: No Allergies codeine [From [employer] with Codeine] Adverse Reaction (Mild, Verified 11/23/20 16:18) NAUSEA, VOMITING Medications levonorgestrel 20 mcg/24 hours (6 yrs) 52 mg intrauterine device 1 insert INTRAUTERINE ONCE 08/19/18 [History Confirmed 03/29/21] clobetasol 0.05 % topical ointment 1 applic TOPICAL QHS #60 g 10/11/20 [Rx Confirmed 05/09/21] famotidine 40 mg tablet 40 mg PO DAILY #90 tab 12/13/20 [Rx Confirmed 03/29/21] Is last menstrual period known: No Post menopausal: No Patient : No : No PFSH Medical History Anxiety and depression Atopic eczema Cyst of left breast Cyst, breast Eczema Kidney stones Lichen sclerosus Maxillary sinusitis Umbilical hernia Surgical History H/O lithotripsy History of umbilical hernia repair (~03/2019) Hx of LASIK Family History Grandmother Heart disease Cancer Grandfather Cancer Heart disease Social History Smoking Status: Never smoker alcohol intake: never substance use type: does not use caffeine: Yes what type of physical activity do you participate in: walking seatbelt use: always 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 Female Reproductive History Menopausal Symptoms: No night sweats Pregancy History 2 Elective abortions Hx Para 3 Spontaneous abortions Hx # Term Pregnancies Ectopic pregnancies Hx # Pregnancies Multiple births 1 # of living children Past Pregnancies Del. Date Name GA/Weeks Outcome Route Bth Weight Gen Labor Lgth Anesthesia Del Locatn Provider FOB Unknown 2008 El Unknown 2011 Stephani Koko ROS Const Constitutional: Denies fatigue, night sweats, weight gain or weight loss ENT ENT: Reports system reviewed and no additional complaints, except as documented Cardio Card: Denies chest pain Resp Resp: Denies cough or dyspnea GI GI: Reports as per HPI; Denies constipation or vomiting : Denies nipple discharge, urinary frequency, urinary incontinence, urinary hesitancy, vaginal discharge, vaginal dryness, vaginal odor or vaginal pruritus Musc Musc: Denies arthralgias, back pain or muscle weakness Skin Skin/Breast: Denies alopecia, change in hair, dry skin, breast mass, breast pain, breast skin changes or nipple discharge Neuro Neuro: Reports system reviewed and no additional complaints, except as documented Psych Psych: Reports system reviewed and no additional complaints, except as documented Endo Endo: Denies cold intolerance, excessive sweating, heat intolerance or polydipsia Chance/Lymph Hematologic/Lymphatic: Denies easy bleeding, Denies easy bruising and Denies lymphadenopathy Exam Const General: cooperative, healthy appearing, comfortable, no acute distress and well developed Orientation: alert [facility] Head: normal to inspection and normocephalic Ears: hearing grossly normal bilaterally and external ears normal Nose: external nose normal and nares normal Face and sinus: normal facial exam Neck Neck: normal visual inspection and no lymphadenopathy Thyroid: thyroid normal Chest Chest palpation & inspection: normal inspection of the chest Resp Effort & Inspection: normal respiratory effort Auscultation: clear to auscultation bilaterally Cardio Rate: regular rate Rhythm: regular rhythm Heart Sounds: S1 normal and S2 normal GI Inspection: normal to inspection and non-distended Palpation: soft and no hepatosplenomegaly General: bladder normal to palpation External Female Exam: normal external appearance and normal appearance of the urethra Urethra: normal appearance of the urethra, normal palpation and no discharge Speculum Exam - Vagina: normal appearance of the vagina and normal vaginal discharge Speculum Exam - Cervix: normal appearance of the cervix and nontender Bimanual Exam- Vagina & Uterus: normal bimanual exam, uterine size normal, bladder normal to palpation, uterine shape normal, No tender, uterine mobility normal, consistency normal, normal palpation and non-tender Bimanual Exam- Adnexa, other: normal adnexae, adnexae mobile, no masses and normal Pelvic Support: normal Musc Other: gross motor intact no deficits, full bilateral strength Skin General: no rashes or lesions noted Neuro General: patient alert, patient awake, moves all extremities and no focal motor deficits Motor: muscle tone normal throughout Extrem General: normal to inspection and no pedal edema Psych Appearance: grossly normal Mental Status: mental status grossly normal Affect: normal affect Speech and Movement: speech and movement normal Coding Level of Care Code No Charge Diagnoses Chronic pelvic pain in female R10.2; G89.29 Right flank pain R10.9 Umbilical hernia K42.9 Obstruction and gangrene presence: without obstruction or gangrene Family history of ovarian cancer Z80.41 Assessment and Plan Assessment and Plan (1) Chronic pelvic pain in female: Status: Chronic Comment: s/p urology, GI, PCP workup, ordered PT consult. plan laparoscopic RSO. left salpingectomy. IUD is in place 01/2018 Plan - Dr. Izzy Choi MD: After discussing the patient's diagnosis and treatment plan options, patient wishes to proceed with surgical management. I have discussed with the patient the risks, benefits, and alternatives of the procedure which include but are not limited to risks of anesthesia, bleeding, infection, possible damage to bowel, bladder, or surrounding vasculature which could lead to additional surgery to ev aluate any complications. Patient agrees to procedure and wishes to proceed. ACOG/uptodate references given for additional information regarding procedure. (2) Right flank pain: Status: Acute Comment: stable kidney stones, s/p urology consult (3) Umbilical hernia: Status: Acute Qualifiers: Obstruction and gangrene presence: without obstruction or gangrene Comment: s/p surgical repair, dw Dr Anderson. plan LUQ entry (4) Family history of ovarian cancer: Status: Acute Comment: grandmother with uterine and ovarian cancer, discussed [employer]. UPDATE- I have seen the patient and performed any clinically relevant updates to the history and physical exam. Izzy Choi MD
[2021-06-07] MEDS: Bupivacaine Mpf 0.5% 30 ML VIAL (08:00)
--- NOTE | 2021-06-07 08:26 | DCINST_ITS ---
Discharge Instructions Diet Discharge Diet: No restrictions Activity Discharge Activity: Return to Normal Activity, May Not Drive (for 2 weeks or while taking narcotic pain meds.), May Shower and May Take a Tub Bath (in 7 days) May resume sexual activity in: 1 week Weight Bearing Status: Full weight bearing Dressing / Incision Call your doctor if your incision/area has: Continuous Slow Oozing, Sudden Increased Bleeding, Increased Pain/ Swelling, Increased Redness and Foul Smelling Discharge Call your doctor if you observe: Fever of 101 or Higher, Using more than 1 pad per hour, Shortness of breath, Chest pain and Uncontrolled pain Suture Line Care: Avoid Pulling/Pushing and Avoid Pinching/Bending Remove Dressing in: 1 week (if present) Cleanse incision/area with: Soap & Water and Keep Dressing Clean & Dry Follow Up Care When: Call to make an appointment with your doctor for a fu/incision check in 1- 2 weeks. Test Results: Test results from this visit will be discussed in further detail at your follow-up appointment, if applicable. Discharge Plan Admission Primary Reason for Your Visit: LAPAROSCOPY Attending Provider: Izzy Choi Primary Care Provider: Itzel Ashley NP Discharge Orders/Prescriptions Prescriptions: New hydrocodone-acetaminophen 5-325 mg tablet 1 tab PO Q6H PRN (Reason: pain) 5 Days Qty: 10 RF: 0 ibuprofen [ibuprofen] 600 MG tablet 600 mg PO Q6H PRN PRN (Reason: pain) Qty: 30 RF: 0 Continued Mirena 20 mcg/24 hr (5 years) intrauterine device 1 insert Intrauterine ONCE RF: 0 clobetasol 0.05 % ointment 1 applic TOPICAL PRN PRN (Reason: Rash) RF: 0 Referrals / Follow Up: Izzy Choi MD [STAFF PHYSICIAN] - Itzel Ashley NP, FACULTY HEAD-C [Primary Care Provider] - Disposition Disposition (needs filled in before D/C Order can be placed): Home, Self Care
--- NOTE | 2021-06-07 08:26 | OP.PCM_ITS ---
Problems Associated Problem List Diagnoses (1) H/O oophorectomy: (2) Chronic pelvic pain in female: (3) Umbilical hernia: Report of Operation Date of Procedure: 06/07/21 Pre-Operative Diagnosis: see problem list Post-Operative Diagnosis: same Surgery/Procedure Performed:: laparoscopic bilateral salpingectomy and right oophorectomy balling machine operator: Juan Francisco Beal Type of Anesthesia: General and Local Special Medications: none Specimen's removed: tubes and right ovary Drains: none Estimated Blood Loss (mL): 50 Fluids Replaced: crystalloid Description of Procedure: Patient was taken in the operating room and was placed under general anesthesia was prepped and draped in normal sterile fashion in the dorsal lithotomy position. Bladder was drained of clear urine and SCDs were on preoperatively. no uterine manipulator was placed due to iud being present. Attention was then paid to the abdominal portion of the procedure and the stomach was confirmed to be emptied with an OG tube that was placed by anesthesia, 2 cm below the lowest rib and in the midclavicular line on the left side was injected, a 5 mm incision made and the Veress needle was entered into the abdomen confirmed to be intra-abdominal with a low opening pressure of less than 8 mmHg. Abdomen was insufflated with CO2 gas and a 12 mm optical trocar was placed under direct visualization. A right 12 and left lower quadrant 5 mm ports were placed under direct visualization. Uterus was well visualized and bilateral fallopian tubes and ovaries were identified and the [bilateral] mesosalpinx was transected across using the LigaSure device followed by transecting across the utero-ovarian and infundibulopelvic ligament on the right ovary to remove the right ovary and bilateral fallopian tubes without complication. Right ovary had a nodular but overall normal appearance but had increased vascular congestion noted on the right side that was not present on the left. A simple ovulatory cyst was noted on the left side that was drained of clear serous fluid. Excellent hemostasis was noted. Specimens were removed through the right lower quadrant port site through a bag without any intra- abdominal spillage of contents. The fascial incision was closed using the Mynor Laura and an 0 Vicryl. Liver and upper abdomen were visualized notably within normal limits and while there may have been mild distention to the sigmoid colon no gross abnormalities were noted or defects seen, and no other gross abnormalities were seen in the abdomen. All instruments removed from the abdomen after gas was desufflated. Port sites were closed with 3-0 Monocryl Steri's and op sites were applied. All instruments removed from the vagina and patient was awoken and taken recovery in stable condition. Grafts/Implants Used: none Complications none Admit VTE Documentation VTE Present on Admission: No VTE Mechan Device Prophylaxis: SCD's Procedures Urinary/Genital 52xxx-[id number]: [id number] Laproscopic BS/O
== END 2021-06-07 10:46 | disposition home or self-care (01) ==
LOC: SDC 05:55 → AC 05:57
PROVIDERS: PCP Nurse Practitioner; Referring Provider Obstetrics & Gynecology; Visit Provider Obstetrics & Gynecology
PROC: (CPT 58720; principal; 2021-06-07 07:15)
DX: G89.29 Other chronic pain (principal); R10.2 Pelvic and perineal pain; Z79.3 Long term (current) use of hormonal contraceptives; K42.9 Umbilical hernia without obstruction or gangrene; Z80.41 Family history of malignant neoplasm of ovary
CPT/HCPCS: 00840; 58661; 36415; 81025; 85025; 86850; 86900; 86901; 87426; 88302; 88305; C9803; J7120; J2405

== ENCOUNTER 2021-12-12 09:44 | Outpatient (CLI) | payer OTHER, SELFPAY ==
[2021-12-15 08:47] LABS: HPV APTIMA, High Risk Negative (Negative)
== END 2021-12-12 23:59 | disposition home or self-care (01) ==
LOC: LABSPEC 12-13 09:44
PROVIDERS: PCP Nurse Practitioner; Visit Provider Obstetrics & Gynecology
DX: Z12.4 Encounter for screening for malignant neoplasm of cervix (principal)
CPT/HCPCS: 87624; 88175; G0145

== ENCOUNTER → 2022-09-08 | Outpatient (CLI) | payer OTHER, SELFPAY | END | disposition home or self-care (01) | PROVIDERS: PCP Nurse Practitioner; Referring Provider Nurse Practitioner; Visit Provider Nurse Practitioner | DX: N20.0 Calculus of kidney (principal); N30.90 Cystitis, unspecified without hematuria | CPT/HCPCS: 87086; 87088 ==

== ENCOUNTER → 2023-01-27 | Outpatient (CLI) | payer OTHER, SELFPAY ==
[2023-01-27 09:47] LABS: ALB/GLOB Ratio 1.2 RATIO (0.9-2.4); AST(SGOT) 12 U/L (15-37); Alanine Aminotransfer ALT/SGPT 17 U/L (13-56); Albumin, Serum 3.8 g/dL (3.2-5.0); Alkaline Phosphatase 52 U/L (45-117); Anion Gap 3 (5-15); BUN 11 mg/dL (7-18); BUN/Creat Ratio 15.4 RATIO (10-20); Calcium,Total 8.7 mg/dL (8.5-10.1); Chloride 106 mmol/L (98-107); Cholesterol 197 mg/dL (200); Creatinine, Serum 0.71 mg/dL (0.55-1.02); EST Glomerular Filtration Rate 95 mL/min (>60); Est Glom Filt Rate - Afr Amer 115 mL/min (>60); Globulin 3.1 g/dL (2.2-4.2); Glucose 87 mg/dL (74-106); High Density Lipoprotein 61 mg/dL; Potassium 3.9 mmol/L (3.5-5.1); Protein, Total 6.9 g/dL (6.4-8.2); Sodium Level 136 mmol/L (136-145); Triglycerides 109 mg/dL; Very Low Density Lipoprotein 22 mg/dL (5-40)
[2023-01-30 14:42] LABS: Vitamin D 1,25-Dihydroxy 49.3 pg/mL (24.8-81.5)
== END | disposition home or self-care (01) ==
LOC: LAB 08:20
PROVIDERS: PCP Nurse Practitioner; Visit Provider Obstetrics & Gynecology
DX: Z13.220 Encounter for screening for lipoid disorders (principal); Z13.1 Encounter for screening for diabetes mellitus; Z13.21 Encounter for screening for nutritional disorder; Z13.29 Encounter for screening for other suspected endocrine disorder
CPT/HCPCS: 36415; 80053; 80061; 82652; 84443

== ENCOUNTER → 2023-01-30 | Outpatient (CLI) | payer OTHER, SELFPAY ==
--- NOTE | 2023-01-30 15:48 | BI_ITS ---
MAMMOGRAPHY - BILATERAL SCREENING 3-D TOMOSYNTHESIS REASON FOR EXAM: Female, 42 years old. Routine screening PERTINENT HISTORY: No significant family history. TECHNIQUE: 2-D mammograms and 3-D Tomosynthesis of the breast (s) were performed. CAD was performed. COMPARISON: 12/02/2020 FINDINGS: The breast composition is heterogeneously dense that can obscure small breast masses. Scattered benign calcifications are seen. No dense spiculated masses or suspicious microcalcifications are identified. No architectural distortion is identified. There is no skin thickening or retraction. There has been no significant change since the prior study. BI/SCRN MAMM (CAD)W/BERENICE BILAT IMPRESSION: No mammographic signs of malignancy. Routine yearly mammograms recommended. ASSESSMENT CATEGORY: BIRADS Category 2: Benign. A letter regarding these results will be sent to the patient by the facility within 30 days. FOLLOW UP RECOMMENDATION: Yearly follow up mammogram recommended. (A) Approximately 10% of breast cancers are not detected by mammography. A normal mammogram should not delay biopsy of a clinically suspicious abnormality. Electronically Signed: Victor Manuel Bond MD at 7:41 EDT ,
[2023-01-30 17:27] LABS: T4 Free Direct 0.78 ng/dL (0.76-1.46)
== END | disposition home or self-care (01) ==
PROVIDERS: PCP Nurse Practitioner; Referring Provider Obstetrics & Gynecology; Visit Provider Obstetrics & Gynecology
DX: Z12.31 Encounter for screening mammogram for malignant neoplasm of breast (principal); R79.89 Other specified abnormal findings of blood chemistry
CPT/HCPCS: 36415; 77063; 77067; 84439

== ENCOUNTER → 2023-04-25 | Outpatient (CLI) | payer OTHER, SELFPAY ==
[2023-04-25 21:39] LABS: T4 Free Direct 0.92 ng/dL (0.76-1.46)
== END | disposition home or self-care (01) ==
PROVIDERS: PCP Nurse Practitioner; Visit Provider Nurse Practitioner
DX: E03.9 Hypothyroidism, unspecified (principal)
CPT/HCPCS: 84439; 84443

== ENCOUNTER → 2023-12-19 | Outpatient (CLI) | payer MEDICARE, SELFPAY | END | disposition home or self-care (01) | PROVIDERS: PCP Nurse Practitioner; Visit Provider Nurse Practitioner | DX: R30.0 Dysuria (principal); N30.90 Cystitis, unspecified without hematuria | CPT/HCPCS: 87086 ==

== ENCOUNTER 2023-12-24 21:41 | Emergency (ER) | payer MEDICARE, SELFPAY ==
[2023-12-24] VITALS (19 sets, daily range): BP systolic 128–164; BP diastolic 75–96; PULSE 52–96; RESP 9–22; TEMP 36.6; O2SAT 97–100; BMI 21.0
--- NOTE | 2023-12-24 21:51 | CT_ITS ---
We are attempting to reach an attending provider to discuss findings. An addendum with communication details will be sent when the communication is complete. STUDY: CTA HEAD AND NECK WITH CONTRAST REASON FOR EXAM: Female, 43 years old. RIGHT ARM AND LEG NUMBNESS RADIATION DOSAGE (If Supplied By Facility): CTDIvol = ( 13.48 ) mGy, DLP = ( 554.90 ) mGycm TECHNIQUE: CT angiography was performed with a multi-detector CT scanner. Data acquisition was obtained from the skull base through the vertex following intravenous administration of IV 100mL [id number]-[id number]. MIP images were reconstructed from the axial data set. Post-processing of the angiographic images was performed, with multiplanar reformation and 3D reconstruction. Individualized dose optimization techniques were used for this CT. COMPARISON: No relevant priors. FINDINGS: Normal bilateral petrous carotid arteries. Normal right cavernous carotid artery with a normal supraclinoid bifurcation. Normal left cavernous carotid artery with a normal supraclinoid bifurcation. Normal right A1 segments of the anterior cerebral artery. Normal left A1 segments of the anterior cerebral artery. Anterior communicating artery is patent.). Normal bilateral A2 segments of the anterior cerebral arteries. Normal right M1 and M2 segments of the middle cerebral arteries, with a normal M1 bifurcation. Normal left M1 and M2 segments of the middle cerebral arteries, with a normal M1 bifurcation. Normal right posterior communicating artery (PCOM). Normal left posterior communicating artery (PCOM). Normal bilateral vertebral arteries. Normal basilar artery with a normal basilar bifurcation. The visualized bilateral superior cerebellar (SCA) arteries are normal. Normal bilateral P1, P2 and visualized P3 segments of the posterior cerebral arteries. There is no demonstrated aneurysm of the zuni of [place]. AORTIC ARCH: Normal visualized aortic arch. Normal origins of the brachiocephalic, left common carotid, and left subclavian arteries. RIGHT CAROTID ARTERIES: Normal right common carotid artery (CCA). Normal right common carotid bulb. Normal origin of the right internal carotid (ICA) artery without a hemodynamically significant stenosis. Normal visualized cervical portion of the right internal carotid artery. Normal origin of the right external carotid artery (ECA). LEFT CAROTID ARTERIES: Normal left common carotid artery (CCA). Normal left common carotid bulb. Normal origin of the left internal carotid (ICA) artery without a hemodynamically significant stenosis. Normal visualized cervical portion of the left internal carotid artery. Normal origin of the left external carotid artery (ECA). VERTEBRAL ARTERIES: Normal bilateral vertebral arteries. CT/STROKE CTA Head AND Neck W/Con IMPRESSION: Normal CTA Head and neck with contrast. Electronically Signed: Vincenzo Roman MD at 22:33 EST ,
--- NOTE | 2023-12-24 21:52 | CT_ITS ---
We are attempting to reach an attending provider to discuss findings. An addendum with communication details will be sent when the communication is complete. INDICATION: RIGHT ARM AND LEG NUMBNESS EXAMINATION: CT BRAIN - CT Head Stroke Protocol W/O Contrast Injection TECHNIQUE: Multiple axial images were obtained of the head without intravenous contrast. A radiation dose optimization technique was used for this scan. IV Contrast dosage and agent: None. RADIATION DOSAGE (If Supplied By Facility): CTDIvol = ( ) mGy, DLP = ( 745.49 ) mGycm COMPARISON: FINDINGS: BRAIN PARENCHYMA: No intra- or extra-axial hemorrhage. No evidence of acute infarct. No intracranial mass or mass effect. There is preservation of the ibanez/white matter interface. Posterior fossa structures are unremarkable. CSF SPACES: Appropriate for age. No hydrocephalus. Basal cisterns are patent. CALVARIUM, SKULL BASE, PARANASAL SINUSES AND MASTOID AIR CELLS: Clear. No discrete lytic or blastic abnormalities. ORBITS: Both globes, extraocular muscles, optic nerves and retrobulbar fat appear unremarkable. ASPECTS Score for Acute Strokes: 10 CT/STROKE Brain/Head without Cont IMPRESSION: Negative Brain CT without contrast. Electronically Signed: Vincenzo Roman MD at 22:03 EST ,
--- NOTE | 2023-12-24 21:56 | EKG12_ITS ---
Test Reason : stroke Blood Pressure : / mmHG Vent. Rate : 084 BPM Atrial Rate : 084 BPM P-R Int : 144 ms QRS Dur : 084 ms QT Int : 398 ms P-R-T Axes : 046 063 092 degrees QTc Int : 470 ms Normal sinus rhythm Nonspecific T wave abnormality Prolonged QT Abnormal ECG Confirmed by Rashel Dc ([id number]), editor house organ VIKY GRAF ([id number]) on 12/26/2023 9:35:23 AM Referred By: Jesika Confirmed By:Rashel Dc
[2023-12-24 22:02] LABS: Absolute Lymphocyte Count 2.39 X10^3/uL (0.83-4.51); Absolute Neutrophil Count 6.5 X10^3/uL (2.0-7.7); Basophil# 0.12 X10^3/uL; Basophil% 1.2 % (0-1); Eosinophils% 1.9 % (0-5); Hemoglobin 14.1 g/dL (12.0-15.0); Lymphocyte # 2.39 X10^3/ul (0.83-4.51); Lymphocyte % 23.2 % (19-41); Mean Corp Hgb Conc 34.4 g/dL (32-36); Mean Corpuscular Hgb 28.6 pg (27.0-32.0); Mean Corpuscular Volume 83.2 fL (81-99); Mean Platelet Vol. 9.3 fl (6.2-12.0); Monocyte# 1.03 X10^3/uL; NRBC Flagged by Analyzer 0 % (0-5); Neutrophil # 6.51 X10^3/uL (2.7-7.7); Neutrophil % 63.3 % (47-70); Platelet Count 289 K/mm3 (150-450); RBC Distribution Width CV 12.9 % (11.6-14.6); RBC Distribution Width SD 38.7 fl (35.1-43.9); Red Blood Count 4.93 M/mm3 (4.2-5.4); White Blood Count 10.3 K/mm3 (4.4-11.0)
[2023-12-24 22:14] LABS: Prothrombin Time (Protime)PT. 13.5 SECONDS (11.7-14.9)
[2023-12-24 22:15] LABS: Anion Gap 4 (5-15); BUN 10 mg/dL (7-18); BUN/Creat Ratio 12.9 RATIO (10-20); Calcium,Total 9.3 mg/dL (8.5-10.1); Chloride 108 mmol/L (98-107); Creatinine, Serum 0.77 mg/dL (0.55-1.02); EST Glomerular Filtration Rate 86 mL/min (>60); Est Glom Filt Rate - Afr Amer 104 mL/min (>60); Estimated Creatinine Clearance 95.08 ml/min; Glucose 101 mg/dL (74-106); Partial Thromboplast Time 30.5 Seconds (24.1-36.2); Potassium 3.7 mmol/L (3.5-5.1); Sodium Level 138 mmol/L (136-145); Troponin-I HS (w/2H Reflex) 9 pg/mL (3.0-54.0)
--- NOTE | 2023-12-24 22:20 | RAD_ITS ---
STUDY: X-RAY CHEST REASON FOR EXAM: Female, 43 years old. Neuro deficit, acute, stroke suspected TECHNIQUE: AP portable COMPARISON: None. FINDINGS: The lungs are clear and expanded. There is no demonstrated pleural abnormality. Normal size heart. Normal mediastinum and abdi. Normal visualized pulmonary arteries. Normal visualized aortic arch and descending thoracic aorta. Normal visualized thoracic spine. Normal visualized ribs, clavicles, and shoulders. There is no demonstrated abnormality of the visualized soft tissue structures of the upper abdomen. RAD/Chest 1 View IMPRESSION: Normal x-ray examination of the chest. Electronically Signed: Vincenzo Roman MD at 22:40 EST ,
--- NOTE | 2023-12-24 22:28 | EDS_ITS ---
HPI History of Present Illness Chief Complaint: Stroke Alert Informant: patient and spouse/S.O. Narrative Narrative: Patient activated stroke alert through triage on arrival. Reported numbness right upper extremity right lower extremity starting at 7:30 PM. Discussion with patient and spouse, she has been feeling fatigued for a month, this evening return from work after dinner noticed tingling and numbness down the whole right arm and then numbness right lateral leg calf region. There is no weakness. No headaches. She has slight blurry vision. She had chest tightness also that is currently resolved. History of hypertension on metoprolol and amlodipine. She currently on ciprofloxacin for UTI symptoms with reported dysuria and frequency which is improving. Medications written by her PCP. No stroke history. No headaches. Denies speech changes. Denies previous similar symptoms in the past. Prior similar symptoms: No PFSH PFSH Medical History Anxiety and depression Atopic eczema Cyst of left breast Eczema Hypothyroidism Kidney stones Lichen sclerosus Non-smoker Home Medications levonorgestrel 21 mcg/24 hours (8 yrs) 52 mg intrauterine device (Mirena) 1 insert intrauterine ONCE 08/19/18 [History Last Taken Unknown] clobetasol 0.05 % topical cream 1 applic topical QHS PRN LICHEN SCLEROSUS 12/12 [History Last Taken Unknown] metoprolol succinate 50 mg tablet,extended release 24 hr 50 mg PO DAILY #90 tabs 01/08/23 [Rx Last Taken Unknown] levothyroxine 50 mcg tablet 50 mcg PO DAILY #90 tabs 04/26/23 [Rx Last Taken 12/24/23] amlodipine 5 mg tablet 5 mg PO DAILY #90 tabs 10/17/23 [Rx Last Taken 12/23/23] ciprofloxacin HCl 500 mg tablet (Cipro) 500 mg PO BID #20 tabs 12/19/23 [Rx Last Taken 12/24/23] Allergy/AdvReac Type Severity Reaction Status Date / Time codeine AdvReac Mild NAUSEA, Verified 12/24/23 21:47 [From [employer] with Codeine] VOMITING Family History Grandmother Heart disease Cancer Hypertension Grandfather Cancer Heart disease Hypertension Mother Hypertension Brother Hypertension Surgical History H/O lithotripsy H/O oophorectomy History of umbilical hernia repair (~03/2019) Hx of LASIK Social History Smoking Status: Never smoker alcohol intake: never substance use type: does not use caffeine: Yes what type of physical activity do you participate in: walking seatbelt use: always additional social history: [employer] Patient works for [employer] ROS ROS ED Constitutional Constitutional ED: Denies chills, fever(s) or sweats Eyes Eyes: Denies change in vision ENT ENT ED: Denies dysphagia or sore throat Cardiovascular Cardiovascular: Reports chest pain; Denies leg edema, palpitations or racing heartbeat Respiratory/Chest Respiratory/Chest: Denies cough, dyspnea or dyspnea on exertion Gastrointestinal Gastrointestinal: Denies abdominal pain, diarrhea, nausea or vomiting Genitourinary Genitourinary ED: Denies dysuria, hematuria or urinary frequency Musculoskeletal Musculoskeletal: Denies back pain, extremity pain or neck pain Integumentary Denies rash or wounds Neurologic Neurologic: Reports paresthesias; Denies headache(s) or weakness EXAM Physical Exam Const Vital Signs: 12/24/23 21:45 12/24/23 21:57 12/24/23 21:58 Temperature 97.8 F Temperature Source Temporal Pulse Rate 52 L Respiratory Rate 16 Respiratory Effort Respiratory Pattern Blood Pressure 164/96 H 151/79 H Blood Pressure Mean 118 103 Pulse Ox 98 Oxygen Delivery Method Room Air Room Air Room Air 12/24/23 22:00 12/24/23 22:15 12/24/23 22:16 Temperature Temperature Source Pulse Rate 96 75 Respiratory Rate 12 14 Respiratory Effort Normal Respiratory Pattern Normal Blood Pressure 152/75 H 140/91 H Blood Pressure Mean 100 107 Pulse Ox 100 100 Oxygen Delivery Method Room Air Room Air 12/24/23 22:17 12/24/23 23:02 12/24/23 22:30 Temperature Temperature Source Pulse Rate 71 85 Respiratory Rate 16 11 L Respiratory Effort Normal Respiratory Pattern Normal Blood Pressure 136/77 H 145/89 H Blood Pressure Mean 96 107 Pulse Ox 97 99 Oxygen Delivery Method Room Air Room Air 12/24/23 22:45 12/24/23 23:00 12/24/23 23:15 Temperature Temperature Source Pulse Rate 78 75 67 Respiratory Rate 22 H 17 15 Respiratory Effort Respiratory Pattern Blood Pressure 131/88 H 128/79 H 135/76 H Blood Pressure Mean 102 95 95 Pulse Ox 100 100 100 Oxygen Delivery Method Room Air Room Air Room Air 12/24/23 23:30 12/24/23 22:26 12/24/23 22:30 Temperature Temperature Source Pulse Rate 70 81 85 Respiratory Rate 16 16 11 L Respiratory Effort Respiratory Pattern Blood Pressure 128/78 H 145/89 H Blood Pressure Mean 94 106 Pulse Ox 100 99 Oxygen Delivery Method Room Air Room Air 12/24/23 22:40 12/24/23 22:45 12/24/23 22:50 Temperature Temperature Source Pulse Rate 70 78 66 Respiratory Rate 17 22 H 9 L Respiratory Effort Respiratory Pattern Blood Pressure 131/88 H Blood Pressure Mean 101 Pulse Ox 100 Oxygen Delivery Method Room Air 12/24/23 22:58 12/24/23 23:00 12/24/23 23:10 Temperature Temperature Source Pulse Rate 68 75 66 Respiratory Rate 16 17 14 Respiratory Effort Respiratory Pattern Blood Pressure 136/77 H 128/79 H Blood Pressure Mean 96 93 Pulse Ox 100 Oxygen Delivery Method Room Air 12/24/23 23:15 12/24/23 23:20 12/24/23 23:45 Temperature Temperature Source Pulse Rate 67 73 66 Respiratory Rate 15 13 15 Respiratory Effort Respiratory Pattern Blood Pressure 135/76 H 130/83 H Blood Pressure Mean 94 98 Pulse Ox 100 100 Oxygen Delivery Method Room Air Room Air 12/25/23 00:00 12/25/23 00:30 12/25/23 00:40 Temperature 97.8 F Temperature Source Pulse Rate 68 64 64 Respiratory Rate 18 14 14 Respiratory Effort Respiratory Pattern Blood Pressure 134/86 H 129/77 H 129/77 H Blood Pressure Mean 102 94 94 Pulse Ox 99 96 99 Oxygen Delivery Method Room Air Room Air 12/24/23 23:30 12/24/23 23:40 12/24/23 23:45 Temperature Temperature Source Pulse Rate 70 68 66 Respiratory Rate 15 15 15 Respiratory Effort Respiratory Pattern Blood Pressure 128/78 H 130/83 H Blood Pressure Mean 93 97 Pulse Ox 100 Oxygen Delivery Method Room Air 12/24/23 23:50 12/25/23 00:00 Temperature Temperature Source Pulse Rate 67 68 Respiratory Rate 17 18 Respiratory Effort Respiratory Pattern Blood Pressure 134/86 H Blood Pressure Mean 98 Pulse Ox 99 Oxygen Delivery Method Room Air Positive well nourished and well developed General Appearance ED: well developed and NAD HEENT Reports moist mucous membranes normocephalic and atraumatic Eyes PERRL, EOMs intact bilaterally and conjunctivae normal General Eye ED: Yes normal appearance of both eyes Neck no lymphadenopathy and supple General: Negative for tenderness Chest Wall Chest: Negative for tenderness Resp normal respiratory effort and normal air movement Effort and Inspection: symmetric chest movement; Negative for respiratory distress Cardio regular rate, regular rhythm and no murmurs Peripheral Pulses: pulses 2+ throughout GI normal to inspection, nondistended, normoactive bowel sounds and non-tender Palpation: Negative for guarding or rebound tenderness present Back/Spine no CVA tenderness and no thoracic nor lumbar tenderness Extremity normal to inspection General Extremety ED: Negative for edema or tenderness General Extremity: Negative for edema Neuro oriented x3, CN's II-XII intact bilaterally and no sensory deficits noted Neuro Narrative: Cerebellar testing upper and lower intact and normal. Sensorium / Orientation: awake and alert Skin no rashes or lesions noted and no wounds NIHSS NIHSS Initial: 1a Level of Consciousness: 0 1b LOC Questions (Score 2 if aphasic/stupor): 0 1c LOC Commands (Only score 1st attempt): 0 2 Best Gaze (If aphasic, use reflexive mvmts.): 0 3 Visual: 0 4 Facial Palsy: 0 5 Motor Arm Right (UN = amputation/fusion): 0 5 Motor Arm Left: 0 6 Motor Leg Right: 0 6 Motor Leg Left: 0 7 Limb ataxia (Only + if out of proportion): 0 8 Sensory (Aphasia/stupor=0 or 1, coma=2): 0 9 Best Language: 0 10 Dysarthria (mute, coma=2, intubated=UN): 0 11 Extinction and Inattention (only scored if +): 0 Total Score: 0 MDM MDM MDM Narrative Medical decision making narrative: Interventions / MDM: Differential diagnosis: Atypical chest pain, paresthesias Diagnosis considered but do not suspect: Stroke, negative workup, per neurology low suspicion. ACS however in negative troponin x 2. My EKG interpretation: Sinus rate of 84, no ST changes, T wave version anterior leads along with inversion aVL flattening in leads I. No old for comparison. Imaging independently reviewed and interpreted by myself: CT brain: No acute process. CT angiogram head and neck no acute process. 1 view chest x-ray: No acute process. Discussion with radiologist. External documents reviewed: N/A Test considered but not ordered:N/A ED course: Stroke team initiated from triage. Patient evaluated subjective paresthesias right arm when she returned. Chest pain is resolved. EKG T wave inversions anterior and aVL. There is no old for comparison. Cardiac workup was initiated. CT scans are negative discussed with radiology. Evaluated by stroke neurologist, they had low suspicion or concerns for stroke symptoms. They did not recommend any further workup. Reevaluate patient symptoms resolved. Initial troponin negative. Chest x-ray negative. 0025: Delta troponin returned negative. Discussed atypical symptoms at this time is nonspecific. Discussed with her chest symptoms albeit short in transit, further workup as an outpatient with her PCP. Discussed if symptoms recurs or worsens, to return to the ED for reevaluation. All questions were answered. Re-evaluation: stable Disposition discussed with patient/family/significant other: Patient and significant other Case discussed with consulting clinician: Telemetry stroke neurology This note was generated with [employer] dictation software. It may contain incorrect words, spelling, and punctuation that were not noted in checking the note before signing. Lab Data Attestation: I reviewed the patient's lab results. Labs: Laboratory Results - last 24 hr 12/24/23 12/24/23 12/24/23 21:48 21:49 23:53 WBC 10.3 RBC 4.93 Hgb 14.1 Hct 41.0 MCV 83.2 MCH 28.6 MCHC 34.4 RDW Std Deviation 38.7 RDW Coeff of Shanice 12.9 Plt Count 289 MPV 9.3 Immature Gran % (Auto) 0.400 Neut % (Auto) 63.3 Lymph % (Auto) 23.2 Nobles % (Auto) 10.0 Eos % (Auto) 1.9 Baso % (Auto) 1.2 H Absolute Neuts (auto) 6.5 Absolute Lymphs (auto) 2.39 Nucleated RBC % 0 PT 13.5 INR 1.0 APTT 30.5 Sodium 138 Potassium 3.7 Chloride 108 H Carbon Dioxide 26.0 Anion Gap 4 L BUN 10 Creatinine 0.77 Estim Creat Clear Calc 95.08 Est GFR (MDRD) Af Amer 104 Est GFR (MDRD) Non-Af 86 BUN/Creatinine Ratio 12.9 Glucose 101 Calcium 9.3 Troponin I High Sens 9 9 POC Glucose 107 H Radiography Diagnostic Testing: Clinical Impression(s) from Imaging Studies Head/Neck CTA 12/24/23 21:51 IMPRESSION: Normal CTA Head and neck with contrast. Electronically Signed: Vincenzo Roman MD at 22:33 EST , ADDENDUM: 12/24/23 2241 IMPRESSION: Normal CTA Head and neck with contrast. N.B. : The above Results were Read Back by Vincenzo Roman MD to Lamont Canchola DO, and understanding confirmed on 12/24/2023 22:34:49 (ET). Electronically Signed: Vincenzo Roman MD at 22:33 EST , Brain CT 12/24/23 21:52 IMPRESSION: Negative Brain CT without contrast. Electronically Signed: Vincenzo Roman MD at 22:03 EST , ADDENDUM: 12/24/23 2210 IMPRESSION: Negative Brain CT without contrast. N.B. : The above Results were Read Back by Vincenzo Roman MD to Lamont Canchola DO, and understanding confirmed on 12/24/2023 22:03:59 (ET). Electronically Signed: Vincenzo Roman MD at 22:03 EST , Chest X-Ray 12/24/23 22:20 IMPRESSION: Normal x-ray examination of the chest. Electronically Signed: Vincenzo Roman MD at 22:40 EST , Critical Care Time Critical Care Time: Yes Critical care time (excluding procedures): 30-74 minutes, Discussing w/Patient &/or Family/Modeling Director, Discussing w/Consultants, Performing Direct Patient Care at Bedside and - (30 minutes) Discharge Plan Triage Chief Complaint: Stroke Alert ED Provider: Lamont Canchola Dx/Rx/DC Orders Clinical Impression: Paresthesia, History of hypertension, Chest pain Instructions: ED Chest Pain, Uncertain Cause, ED Paraesthesias Prescriptions: No Action Mirena 20 mcg/24 hr (5 years) intrauterine device 1 insert Intrauterine ONCE clobetasol 0.05 % cream 1 applic topical QHS PRN (Reason: LICHEN SCLEROSUS) metoprolol succinate 50 mg tablet extended release 24 hr 50 mg PO DAILY Qty: 90 3RF levothyroxine 50 mcg tablet 50 mcg PO DAILY Qty: 90 2RF amlodipine 5 mg tablet 5 mg PO DAILY Qty: 90 0RF ciprofloxacin HCl [Cipro] 500 mg tablet 500 mg PO BID Qty: 20 0RF Stand Alone Forms: ED Work / School Excuse Primary Care Provider: Itzel Ashley NP Referrals: Itzel Ashley NP, DIRECTOR CHEMISTRY-C [Primary Care Provider] - 3-5 Days Activity Restrictions/Additional Instructions: Stroke workup CT and CTA head and neck negative. Evaluated by stroke neurologist, low concerns for stroke issues. Your cardiac workup negative troponin x 2. Monitor symptoms and follow-up with your doctor. If symptoms recurs or worsens return to ED for evaluation. Disposition Disposition: Home, Self Care Discharge Date/Time: 12/25/23 00:46
[2023-12-24 23:17] LABS: Bedside Glucose 107 mg/dL (74-106)
[2023-12-24 23:59] LABS: Reflex Troponin-HS? (from REC) Y
[2023-12-25] VITALS: BP 134/86; PULSE 68; RESP 18; O2SAT 99
[2023-12-25 00:22] LABS: Troponin-I HS 9 pg/mL (3.0-54.0)
[2023-12-25 00:30] VITALS: BP 129/77; PULSE 64; RESP 14; O2SAT 96
[2023-12-25 00:40] VITALS: BP 129/77; PULSE 64; RESP 14; TEMP 36.6; O2SAT 99
== END 2023-12-25 00:46 | disposition home or self-care (01) ==
PROVIDERS: Emergency Provider Emergency Medicine; PCP Nurse Practitioner; Visit Provider Emergency Medicine
DX: R20.2 Paresthesia of skin (principal); I10 Essential (primary) hypertension; R07.9 Chest pain, unspecified; E03.9 Hypothyroidism, unspecified; Z79.899 Other long term (current) drug therapy
CPT/HCPCS: 70450; 70496; 70498; 71045; 80048; 82962; 84484; 85025; 85610; 85730; 93005; 99285; Q9967; A4216

== ENCOUNTER 2024-03-28 20:23 | Outpatient (CLI) | payer OTHER, SELFPAY ==
[2024-03-30 11:08] LABS: Lyme Scn Total Ab w/Rflx Negative (Negative)
== END 2024-03-28 23:59 | disposition home or self-care (01) ==
PROVIDERS: PCP Nurse Practitioner; Referring Provider Nurse Practitioner; Visit Provider Nurse Practitioner
DX: S90.862A Insect bite (nonvenomous), left foot, initial encounter (principal); W57.XXXA Bitten or stung by nonvenomous insect and other nonvenomous arthropods, initial encounter
CPT/HCPCS: 86618

== ENCOUNTER → 2024-04-21 | Outpatient (CLI) | payer OTHER, SELFPAY ==
--- NOTE | 2024-04-21 07:32 | BI_ITS ---
MAMMOGRAPHY - BILATERAL SCREENING 3-D TOMOSYNTHESIS REASON FOR EXAM: Female, 43 years old. SCREENING PERTINENT HISTORY: No significant family history. TECHNIQUE: 2-D mammograms and 3-D Tomosynthesis of the breast (s) were performed. CAD was performed. COMPARISON: 01/30/2023 FINDINGS: The breast composition is Extermely dense tissue. Scattered benign calcifications are seen. No dense spiculated masses or suspicious microcalcifications are identified. No architectural distortion is identified. There is no skin thickening or retraction. There has been no significant change since the prior study. BI/SCRN MAMM (CAD)W/BERENICE BILAT IMPRESSION: No mammographic signs of malignancy. Routine yearly mammograms recommended. ASSESSMENT CATEGORY: BIRADS Category 1: Negative. A letter regarding these results will be sent to the patient by the facility within 30 days. FOLLOW UP RECOMMENDATION: Yearly follow up mammogram recommended. (A) Approximately 10% of breast cancers are not detected by mammography. A normal mammogram should not delay biopsy of a clinically suspicious abnormality. Electronically Signed: Jaya Toledo MD at 11:33 EDT ,
== END | disposition home or self-care (01) ==
PROVIDERS: PCP Nurse Practitioner; Referring Provider Obstetrics & Gynecology; Visit Provider Obstetrics & Gynecology
DX: Z12.31 Encounter for screening mammogram for malignant neoplasm of breast (principal)
CPT/HCPCS: 36415; 77063; 77067

== ENCOUNTER → 2024-06-17 | Outpatient (CLI) | payer OTHER, SELFPAY ==
--- NOTE | 2024-06-17 17:24 | RAD_ITS ---
INDICATION: chronic cough EXAMINATION/TECHNIQUE: X-RAY - XR Chest 2 Views COMPARISON: December 24, 2023 FINDINGS: LINES/DEVICES: None. LUNGS: No consolidation, edema or effusion. No pneumothorax. MEDIASTINUM AND CARDIOVASCULAR STRUCTURES: Cardiac silhouette not enlarged. Central airways and mediastinal contour are unremarkable. BONES AND SOFT TISSUES: Unremarkable. RAD/Chest PA and Lateral IMPRESSION: No radiographic evidence of acute cardiopulmonary disease. Electronically Signed: Hector Estes DO at 23:19 EDT ,
== END | disposition home or self-care (01) ==
LOC: RAD 17:23
PROVIDERS: PCP Nurse Practitioner; Referring Provider Nurse Practitioner; Visit Provider Nurse Practitioner
DX: R05.3 Chronic cough (principal)
CPT/HCPCS: 71046

== ENCOUNTER → 2025-01-19 | Outpatient (CLI) | payer OTHER, SELFPAY ==
[2025-01-19 22:14] LABS: Absolute Lymphocyte Count 1.87 X10^3/uL (0.83-4.51); Absolute Neutrophil Count 4.1 X10^3/uL (2.0-7.7); Basophil% 1.5 % (0-1); Eosinophil# 0.12 X10^3/uL; Eosinophils% 1.8 % (0-5); Hematocrit 42.8 % (37-47); Hemoglobin 14.5 g/dL (12.0-15.0); Lymphocyte # 1.87 X10^3/ul (0.83-4.51); Lymphocyte % 27.3 % (19-41); Mean Corp Hgb Conc 33.9 g/dL (32-36); Mean Corpuscular Hgb 28.6 pg (27.0-32.0); Mean Corpuscular Volume 84.4 fL (81-99); Mean Platelet Vol. 10.1 fl (6.2-12.0); Monocyte% 8.8 % (0-10); NRBC Flagged by Analyzer 0 % (0-5); Neutrophil # 4.14 X10^3/uL (2.7-7.7); Neutrophil % 60.3 % (47-70); Platelet Count 269 K/mm3 (150-450); RBC Distribution Width CV 12.5 % (11.6-14.6); RBC Distribution Width SD 38.4 fl (35.1-43.9); Red Blood Count 5.07 M/mm3 (4.2-5.4); White Blood Count 6.9 K/mm3 (4.4-11.0)
[2025-01-19 22:35] LABS: Cholesterol 229 mg/dL (<=200); High Density Lipoprotein 57 mg/dL; Low Density Lipoprotein Calc. 124 mg/dL; Triglycerides 239 mg/dL; Very Low Density Lipoprotein 48 mg/dL (5-40)
[2025-01-19 22:39] LABS: ALB/GLOB Ratio 1.6 RATIO (0.9-2.4); AST(SGOT) 22 U/L (<=31); Alanine Aminotransfer ALT/SGPT 15 U/L (<=34); Albumin, Serum 4.5 g/dL (3.5-5.0); Alkaline Phosphatase 81 U/L (35-104); Anion Gap 12 (5-15); BUN 14 mg/dL (4-19); BUN/Creat Ratio 18.6 RATIO (10-20); Calcium,Total 9.5 mg/dL (7.6-11.0); Carbon Dioxide 24.8 mmol/L (21.0-32.0); Chloride 103 mmol/L (98-108); Creatinine, Serum 0.77 mg/dL (0.70-1.20); EST Glomerular Filtration Rate 97 (>60); Globulin 2.9 g/dL (2.2-4.2); Glucose 90 mg/dL (70-99); Potassium 4.1 mmol/L (3.3-5.1); Protein, Total 7.4 g/dL (5.9-8.4); Sodium Level 140 mmol/L (133-145); Total Bilirubin 0.73 mg/dL (0.00-1.30)
== END | disposition home or self-care (01) ==
LOC: OLS.AHF 21:59
PROVIDERS: PCP Nurse Practitioner
DX: E03.9 Hypothyroidism, unspecified (principal); I10 Essential (primary) hypertension; K21.9 Gastro-esophageal reflux disease without esophagitis
CPT/HCPCS: 80053; 80061; 84443; 85025